=== PATIENT | male | born 1960 | race Caucasian/White ===

== ENCOUNTER 2020-09-10 23:24 | Emergency (ER) | payer OTHER ==
[~2020-09-10] VITALS: Ht 228.6 cm; Wt 83.9 kg
--- NOTE | ~2020-09-10 | HC ---
[facility] [place] [address] CONSULTATION Name: GINA ORTEZ Room #: DEP [facility]..#: [id number] Admission: 09/10/20 Attend Phys: Discharge: 09/11/20 Date of : 64 Report #: [id number] THIS REPORT FOR: cc: Clinton Funez MD, Charles MD Kerstein,Good Bello DO ~ DATE OF SERVICE: 09/11/2020 EMERGENCY ROOM CONSULTATION DATE OF PSYCHIATRIC CONSULTATION: 09/11/2020 EMERGENCY ROOM PHYSICIAN: Pranay Kinsey MD. CONSULTING PSYCHIATRIST: Good Clarke DO. REASON FOR CONSULTATION: Reported suicidal ideation, depression, alcohol use disorder. HISTORY OF PRESENT ILLNESS: This is a 60-year-old male who tends to present to ER with chest pains by his own admission and he indeed presented with chest pain to [facility] ER. He reported it has been there for the last few days, gradually worse in severity, stated extensive description of the pain to the ER doctor. He does admit to drinking alcohol 2 days ago. He also admitted that he has had similar chest pain in the past. He was seen at [facility] earlier this year for chest pain workup. He reports being in a psychiatric treatment program there. It sounds like it may have been their PHP. He also reported to the ER doctor increasing suicidal ideation. States he is not sure what brought this on, but there have not been any triggering events. He was seen by psychiatrist several years ago for 18 months. He stated me it was 5-6 years ago, it did not feel like they made progress. He stated to me it was a Dr. Pablo ____ sounds like a psychologist, not a psychiatrist. He admits he has medication recently prescribed for him in another ER visit, which he has not picked up. He is not engaged with [facility]. The patient reports that he has lived in [place] the last 9 months. Previous to that, he was in the state of [place]. He reports 1 month ago, he jumped into traffic and then decided he did not want to kill himself and jumped out. This was reported to be something that he is glad he did not follow through with. He also was recently discharged from [facility], I believe, that is where the medication was prescribed he has not picked up. It also looks like he refused to be seen for the chest pain initially ____ he complained of suicidal ideation. ALLERGIES: No known allergies. [facility] [address] [place] [address] CONSULTATION Name: GINA ORTEZ [id number] Admission: 09/10/20 Attend Phys: Discharge: 09/11/20 Date of : 64 Report #: [id number] HOME MEDICATIONS: At this point, naltrexone 50 mg daily and sertraline 50 mg daily. It sounds like that is what he has not picked up. REVIEW OF SYSTEMS: From the ER: CONSTITUTIONAL: Denies fever, chills, malaise, unexplained weight change. EYES: Denies eye pain, visual change or discharge. HENT: Denies hearing changes, ear drainage, ear infections, ear pain, neck pain or neck stiffness. RESPIRATORY: Denies cough, shortness of breath, hemoptysis or respiratory distress. CARDIOVASCULAR: As above the vague chest pain. GASTROINTESTINAL: Possibly, the source of the pain as well from his drinking. GENITOURINARY: Denies burning, frequency or dysuria. MUSCULOSKELETAL: Denies back pain, joint pain, muscle weakness or myalgias. SKIN: Denies rash. NEUROLOGIC: Denies weakness, headache, loss of consciousness. Intermittent suicidal ideation, not presently. Otherwise, 10-point review of systems negative. Weight 83.92 kg, BMI 16.1. He looks heavier, so thinking the weight may not be 100% accurate. LABORATORY DATA: Done last night, H and H 12.5 and 38.8, white count 7.4, platelets 210. Chemistry: Sodium 143, potassium 4.2, chloride 102, bicarbonate 27, anion gap 14, BUN 8, creatinine 1.0, estimated GFR 77, glucose 85, calcium 8.7, total bilirubin 0.3, direct bilirubin 0.1, AST 15, ALT 18, alkaline phosphatase 63. Troponin less than 0.06. Total protein 7.1, albumin 4.2. COVID-19 PCR serology was negative. A chest x-ray done, which showed heart size mildly prominent. No evidence of pneumonia, pneumothorax. Also did an EKG, which showed a ventricular rate of 63, WA interval 63 milliseconds, QT ____ milliseconds, QTc is 472 milliseconds and sinus rhythm. Troponin less than 0.06, alkaline phosphatase 63, AST 15, ALT 18, total protein 7.1, albumin 4.2, estimated GFR 77. Interestingly, when I asked him ____ he was in the ER. He says now he "just got there." He wants to ____ this was in relation to having his sons pick him up to get him back to his home appropriately. PHYSICAL EXAMINATION: VITAL SIGNS: This morning, temperature 36.1, pulse 84, respirations 20, BP 138/76, O2 sat 95%. GENERAL: Lying elevated in ER gurney, but unkempt. [facility] [address] [place] [address] CONSULTATION Name: GINA ORTEZ Room #: DEP Dave#: [id number] Admission: 09/10/20 Attend Phys: Discharge: 09/11/20 Date of : 64 Report #: [id number] MENTAL STATUS EXAMINATION: This is a well-developed male, appearing stated age. Attention intact. Concentration intact. Speech is normal, rate, rhythm, tone and oriented x 4. Thought process: Linear and goal oriented. Thought content focused on nothing specific ____ he did tell me he sold his car and he states yesterday he was in the [place] area, but was vague as to why or how. Denied suicidal intent and homicidal intent. Denies hopelessness, some helplessness. Denied auditory, visual, or tactile hallucinations. Memory not formally tested. Insight limited. Judgment fair to limited at times. Fund of knowledge average. FORMULATION: A 60-year-old male with ER presentation for reactive suicidal ideation when he was not happy with his chest pain workup. DIAGNOSES: At this time, adjustment disorder with disturbance of emotions ____ suicidal ideas, resolved; substance use disorder for alcohol, suspect at least moderate degree. PLAN: At this time, the patient does not meet criteria for inpatient Psychiatry including Geriatric Psychiatry Unit. Recommend him discharged to community resources including assistance from his sons. He is concerned that he has burned his bridges there. The patient also was advised if he is living in [place], his Medicaid should be changed from [place] to [place]. Time spent with this patient was in the 15-minute range and interview roughly 30 minutes on the case. I discussed my findings with Dr. Kinsey and nurse ____. Please page me if further assistance is needed. Also, the only thing he got in the ER was Tylenol. By: [id number] Good Clarke, DO /nt
[2020-09-11] MEDS ORDERED: SERTRALINE HCL100 MG PO (00:10)
[2020-09-11] MEDS ORDERED: REVIA 50 MG TAB50 M1 PO (00:10)
[2020-09-11 02:49] LABS: ABSOLUTE NEUTROPHILS 3.7 thou/uL (1.4-8.2); BASOPHILS 0.7 % (0.0-2.0); EOSINOPHILS 3.9 % (0.0-3.0); HEMATOCRIT 38.8 % (42.0-52.0); HEMOGLOBIN 12.5 gm/dL (14.0-18.0); LYMPHOCYTES 35.7 % (24.0-44.0); MCH 29.8 pg (26.0-34.0); MCHC 32.2 g/dL (28.0-37.0); MCV 92.5 fL (80.0-100.0); MONOCYTES 9.4 % (1.0-8.0); PLATELET COUNT 210 thou/uL (150-400); POLYS 50.3 % (36.0-66.0); RDW 20.1 % (10.5-14.5); WBC 7.4 thou/uL (4.0-11.0)
[2020-09-11 02:56] LABS: ANION GAP 14 mmol/L (7-16); BUN 8 mg/dL (7-18); CALCIUM 8.7 mg/dL (8.5-10.1); CHLORIDE 102 mmol/L (98-107); CO2 27 mmol/L (21-32); GLUCOSE 85 mg/dL (74-106); SODIUM 143 mmol/L (136-145)
[2020-09-11 03:05] LABS: ALBUMIN 4.2 g/dL (3.4-5.0); DIRECT BILIRUBIN 0.1 mg/dL (<0.1-0.2); SGOT 15 U/L (15-37); SGPT 18 U/L (30-65); TOTAL BILIRUBIN 0.3 mg/dL (0.2-1.0); TOTAL PROTEIN 7.1 g/dL (6.4-8.2); TROPONIN-I <0.06 ng/mL (<0.06)
--- NOTE | 2020-09-11 07:10 | EKG ---
[facility] [place] [address] ELECTROCARDIOGRAM REPORT Name: GINA ORTEZ Room #: REG [facility].#: [id number] Admission: 09/10/20 Attend Phys: Discharge: Date of : 64 Report #: [id number] THIS REPORT FOR: cc: Clinton Funez MD, Charles MD Santiago,Reinaldo VAZ [facility] ~ THIS REPORT FOR: //name// [facility] ED Test Date: 2020-09-11 Test Time: 01:20:32 Pat Name: GINA ORTEZ Department: Room: Gender: Cleaning Supervisor: [facility] : 1960 Requested By: Jessie Corral Order Number: [id number] MD: Reinaldo Burgess Measurements Intervals [place] Rate: 63 P: 65 [place]: 63 QRS: 73 QRSD: 110 T: 18 QT: 461 QTc: 472 Interpretive Statements Sinus rhythm Short OH interval Right atrial enlargement MinimalJ point elevation, anterior leads No previous ECG available for comparison Electronically Signed On 09-11-2020 7:10:12 QA TEST ANALYST by Reinaldo Burgess [email or web address] <ELECTRONICALLY SIGNED> By: Reinaldo Burgess MD, FACC [id number] Reinaldo Burgess MD, [facility] /EPI
[2020-09-11] MEDS ORDERED: NAPROSYN500 MG PO (09:01)
[2020-09-11 09:30] VITALS: BP 135/78
== END 2020-09-11 09:32 | disposition home or self-care (01) ==
LOC: ER 23:24
PROVIDERS: Emergency Medicine
DX: F32.9 Major depressive disorder, single episode, unspecified (principal); F10.10 Alcohol abuse, uncomplicated; F43.29 Adjustment disorder with other symptoms; R45.851 Suicidal ideations; R06.00 Dyspnea, unspecified; I10 Essential (primary) hypertension; Z72.89 Other problems related to lifestyle; Z20.828 Contact with and (suspected) exposure to other viral communicable diseases; Z79.899 Other long term (current) drug therapy

== ENCOUNTER → 2020-09-10 | Emergency (ER) | payer OTHER ==
[~2020-09-10] MED LIST: NAPROSYN500 MG PO; REVIA 50 MG TAB50 M1 PO; SERTRALINE HCL100 MG PO
== END ==
LOC: ER 21:35
DX: R07.89 Other chest pain (principal); Z53.21 Procedure and treatment not carried out due to patient leaving prior to being seen by health care provider

== ENCOUNTER 2020-09-13 16:23 | Emergency (ER) | payer OTHER ==
[~2020-09-13] VITALS: Ht 185.4 cm; Wt 83.9 kg
[2020-09-13 23:57] VITALS: BP 115/62
== END 2020-09-13 23:58 | disposition home or self-care (01) ==
LOC: ER 16:23
DX: F10.129 Alcohol abuse with intoxication, unspecified (principal); G62.9 Polyneuropathy, unspecified; Z79.899 Other long term (current) drug therapy

== ENCOUNTER 2020-10-25 20:55 | Emergency (ER) | payer OTHER ==
[~2020-10-25] VITALS: Ht 180.3 cm; Wt 108.9 kg
[2020-10-25 22:44] LABS: ABSOLUTE NEUTROPHILS 3.4 thou/uL (1.4-8.2); BASOPHILS 0.3 % (0.0-2.0); EOSINOPHILS 3.9 % (0.0-3.0); HEMATOCRIT 36.5 % (42.0-52.0); HEMOGLOBIN 12.1 gm/dL (14.0-18.0); LYMPHOCYTES 31.4 % (24.0-44.0); MCH 30.8 pg (26.0-34.0); MCHC 33.1 g/dL (28.0-37.0); MCV 93.2 fL (80.0-100.0); PLATELET COUNT 218 thou/uL (150-400); POLYS 51.4 % (36.0-66.0); RBC 3.92 mil/uL (4.50-6.00); RDW 19.1 % (10.5-14.5); WBC 6.6 thou/uL (4.0-11.0)
[2020-10-25 22:49] LABS: CALCIUM 8.6 mg/dL (8.5-10.1); POTASSIUM 3.6 mmol/L (3.5-5.1)
[2020-10-25 22:55] LABS: TOTAL BILIRUBIN 0.2 mg/dL (0.2-1.0); TOTAL PROTEIN 7.3 g/dL (6.4-8.2)
[2020-10-25 23:09] LABS: AMP/METHAMP Negative (Negative); BARBITURATES Negative (Negative); BENZODIAZEPINES POSITIVE (Negative); COCAINE Negative (Negative); METHADONE Negative (Negative); OPIATES Negative (Negative); PCP Negative (Negative)
[2020-10-26 07:06] VITALS: BP 111/65
== END 2020-10-26 07:55 | disposition home or self-care (01) ==
LOC: ER 20:55
PROVIDERS: Emergency Medicine
DX: F10.129 Alcohol abuse with intoxication, unspecified (principal); G62.9 Polyneuropathy, unspecified; Z79.899 Other long term (current) drug therapy; Y90.9 Presence of alcohol in blood, level not specified

== ENCOUNTER 2020-12-05 20:40 | Emergency (ER) | payer OTHER ==
[~2020-12-05] VITALS: Ht 182.9 cm; Wt 81.7 kg
[2020-12-05 20:54] LABS: ABSOLUTE NEUTROPHILS 5.1 thou/uL (1.4-8.2); BASOPHILS 0.8 % (0.0-2.0); EOSINOPHILS 2.2 % (0.0-3.0); HEMOGLOBIN 11.5 gm/dL (14.0-18.0); LYMPHOCYTES 19.3 % (24.0-44.0); MCH 29.5 pg (26.0-34.0); MCHC 32.8 g/dL (28.0-37.0); MCV 89.8 fL (80.0-100.0); MONOCYTES 8.5 % (1.0-8.0); PLATELET COUNT 237 thou/uL (150-400); POLYS 69.2 % (36.0-66.0); RBC 3.89 mil/uL (4.50-6.00); RDW 17.5 % (10.5-14.5); WBC 7.4 thou/uL (4.0-11.0)
[2020-12-05 21:45] LABS: ANION GAP 9 mmol/L (7-16); BUN 9 mg/dL (7-18); CALCIUM 8.1 mg/dL (8.5-10.1); CHLORIDE 92 mmol/L (98-107); CO2 27 mmol/L (21-32); CREATININE 1.1 mg/dL (0.7-1.3); GLUCOSE 97 mg/dL (74-106); POTASSIUM 3.7 mmol/L (3.5-5.1); SODIUM 128 mmol/L (136-145)
[2020-12-05 21:55] LABS: SGOT 38 U/L (15-37); SGPT 27 U/L (30-65); TOTAL BILIRUBIN 1.1 mg/dL (0.2-1.0); TROPONIN-I <0.06 ng/mL (<0.06)
[2020-12-05 22:04] LABS: SALICYLATE < 2.8 mg/dL (2.8-20.0)
[2020-12-05 22:53] LABS: AMP/METHAMP Negative (Negative); BARBITURATES Negative (Negative); BENZODIAZEPINES Negative (Negative); COCAINE Negative (Negative); METHADONE Negative (Negative); OPIATES Negative (Negative); PCP Negative (Negative)
--- NOTE | 2020-12-06 07:13 | EKG ---
[place] [address] [facility] [place] [address] ELECTROCARDIOGRAM REPORT Name: GINA ORTEZ [id number] Admission: 12/05/20 Attend Phys: Discharge: Date of : 64 Report #: [id number] [facility] ED Test Date: 2020-12-05 Test Time: 21:25:18 Pat Name: GINA ORTEZ Department: Room: Gender: M Extrusion Supervisor: wilbur : 1960 Requested By: Arielle Gil Order Number: [id number] MD: Reinaldo Burgess Measurements Intervals [place] Rate: 64 P: 68 [place]: 173 QRS: 85 QRSD: 95 T: 52 QT: 457 QTc: 472 Interpretive Statements Sinus rhythm Borderline ST elevation, lateral leads Baseline wander in lead(s) V2 Compared to ECG 09/11/2020 01:20:32 ST (T wave) deviation now present Short NC interval no longer present Atrial abnormality no longer present Electronically Signed On 12-06-2020 7:13:35 STENCIL CUTTER MACHINE by Reinaldo Burgess [email or web address] <ELECTRONICALLY SIGNED> By: Reinaldo Burgess MD, [facility] 12/06/20 0713 24 24 Reinaldo Burgess MD, [facility] /EPI
--- NOTE | 2020-12-06 07:44 | EKG ---
[place] [address] [facility] [place] [address] ELECTROCARDIOGRAM REPORT Name: GINA ORTEZ [facility]: [facility] [id number] Admission: 12/05/20 Attend Phys: Discharge: Date of : 64 Report #: [id number] [facility] ED Test Date: 2020-12-05 Test Time: 20:46:24 Pat Name: GINA ORTEZ Department: Room: Gender: M Centrifugal Supervisor: wilbur : 1960 Requested By: Arielle Gil Order Number: [id number] MD: Niranjan Spaulding Measurements Intervals [place] Rate: 66 P: 81 [place]: 177 QRS: 86 QRSD: 99 T: 54 QT: 458 QTc: 480 Interpretive Statements Sinus rhythm Borderline prolonged QT interval Baseline wander in lead(s) V2 Compared to ECG 09/11/2020 01:20:32 No significant change was found Electronically Signed On 12-06-2020 7:43:48 MEDICAL CHEMIST by Niranjan Spaulding [email or web address] <ELECTRONICALLY SIGNED> By: Niranjan Spaulding MD, [facility] 12/06/20 0743 45 45 Niranjan Spaulding MD, FACC /EPI
[2020-12-06 09:50] VITALS: BP 135/89
== END 2020-12-06 09:50 | disposition home or self-care (01) ==
LOC: ER 20:40
PROVIDERS: Physician Assistant
DX: R07.89 Other chest pain (principal); F10.129 Alcohol abuse with intoxication, unspecified; Z79.899 Other long term (current) drug therapy; Z20.822 Contact with and (suspected) exposure to COVID-19; Y90.7 Blood alcohol level of 200-239 mg/100 ml

== ENCOUNTER 2021-03-01 16:30 | Emergency (ER) | payer OTHER ==
[~2021-03-01] VITALS: Ht 182.9 cm; Wt 81.7 kg
--- NOTE | ~2021-03-01 | EMS ---
[facility] [address] [place] [address] EMS Patient Care Report Name: GINA ORTEZ Room #: REG MONICA Acosta#: [id number] Admission: 03/01/21 Attend Phys: Discharge: Date of : 64 Report #: [id number] THIS REPORT FOR: //name// Report Transmitted: 03/01/2021 19:40 EMS Care Summary [facility] MED-ACT Incident [id number] @ 03/01/2021 16:00 Incident Location [address] [place] [address] Patient GINA ORTEZ Male, 60 Years 1960 Patient Address [address] [place] [address] Patient History Hypertension (HTN),Depression,Anxiety,Neuropathy,Alcohol Abuse,Tonsillectomy, Patient Allergies No known allergies, Patient Medications Lisinopril, Chief Complaint Pt is having emotional distress Disposition Transported No Lights/[place] Dispatch Reason Traumatic Injury Transported To [facility] Narrative [id number] responded to above business location for a C2 injury. On scene, the crew finds an alert although possibly intoxicated on ETOH 60/M seated on a bench in front of a business. PD reports the employees at the business called for them when he fell into the doorway and sustained a small laceration to his L side [facility] [address] [place] [address] EMS Patient Care Report Name: GINA ORTEZ Room #: REG Dave#: [id number] Admission: 03/01/21 Attend Phys: Discharge: Date of : 64 Report #: [id number] face and L side ear. Pt's chief complaint is that he would like to detox from alcohol. "I drink like a pig", he responded when asked how much alcohol he had consumed today. Pt denied any medical complaint although stated he was under considerable emotional distress due to an ongoing disagreement with his ex-. Pt admits to being an alcoholic and would like to detox. ABCs, PE, VS from [facility] already on scene with pt. Pt has a superficial approx 2" laceration on his L cheek and denies any pain in his body. Pt assisted to cot and secured with belts. Pt moved via cot to [facility] and secured on board. Pt rests en route to [facility] and remains A&Ox3 although is lethargic and slurring his words possibly due to ETOH intoxication. On arrival at [facility], pt moved to ER and scoots himself over to ER bed. Report delivered to staff. 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 It is designed to provide pertinent information for the following purposes: continuity of care, clinical quality, and state data reporting. The complete legal record is available to ED staff and administrators of the receiving hospital in [employer] Patient Tracker. All data is provided "as is."
[2021-03-01] MEDS ORDERED: LISINOPRIL10 MG PO (16:39)
[2021-03-01 16:57] LABS: ABSOLUTE NEUTROPHILS 3.4 thou/uL (1.4-8.2); BASOPHILS 0.6 % (0.0-2.0); EOSINOPHILS 1.2 % (0.0-3.0); HEMATOCRIT 36.1 % (42.0-52.0); HEMOGLOBIN 12.2 gm/dL (14.0-18.0); LYMPHOCYTES 28.1 % (24.0-44.0); MCH 32.2 pg (26.0-34.0); MCHC 33.8 g/dL (28.0-37.0); MCV 95.3 fL (80.0-100.0); MONOCYTES 11.9 % (1.0-8.0); PLATELET COUNT 184 thou/uL (150-400); POLYS 58.2 % (36.0-66.0); RBC 3.79 mil/uL (4.50-6.00); RDW 21.6 % (10.5-14.5); WBC 5.8 thou/uL (4.0-11.0)
[2021-03-01 17:09] LABS: ANION GAP 15 mmol/L (7-16); BUN 9 mg/dL (7-18); CALCIUM 8.4 mg/dL (8.5-10.1); CHLORIDE 103 mmol/L (98-107); CO2 24 mmol/L (21-32); CREATININE 0.9 mg/dL (0.7-1.3); GLUCOSE 99 mg/dL (74-106); POTASSIUM 3.7 mmol/L (3.5-5.1); SODIUM 142 mmol/L (136-145)
[2021-03-01 17:15] LABS: ALBUMIN 3.8 g/dL (3.4-5.0); SALICYLATE < 2.8 mg/dL (2.8-20.0); SGOT 64 U/L (15-37); SGPT 46 U/L (16-63); TOTAL BILIRUBIN 0.5 mg/dL (0.2-1.0)
[2021-03-01 18:08] LABS: ANISOCYTOSIS 2+; OVALOCYTES FEW
[2021-03-02 06:16] VITALS: BP 128/74
== END 2021-03-02 06:24 | disposition home or self-care (01) ==
LOC: ER 16:30
PROVIDERS: Physician Assistant
DX: F10.129 Alcohol abuse with intoxication, unspecified (principal); Y90.8 Blood alcohol level of 240 mg/100 ml or more

== ENCOUNTER 2021-05-06 16:09 | Emergency (ER) | payer OTHER ==
[~2021-05-06] VITALS: Ht 182.9 cm; Wt 81.7 kg
--- NOTE | ~2021-05-06 | EMS ---
[facility] [address] [place] [address] EMS Patient Care Report Name: GINA ORTEZ Room #: DEP MONICA Acosta#: [id number] Admission: 05/06/21 Attend Phys: Discharge: 05/06/21 Date of : 64 Report #: [id number] THIS REPORT FOR: //name// Report Transmitted: 05/07/2021 05:57 EMS Care Summary [facility] MED-ACT Incident [id number] @ 05/06/2021 15:34 Incident Location [address] [place] [address] Patient GINA ORTEZ Male, 60 Years 1960 Patient Address [address] [place] [address] Patient History Hypertension (HTN),Depression,Anxiety,Neuropathy,Alcohol Abuse,Tonsillectomy, Patient Allergies No known allergies, Patient Medications Lisinopril, Chief Complaint I am in a drunk stupor Disposition Transported No Lights/[place] Dispatch Reason Unknown Problem/Person Down Transported To [facility] Narrative Arrived on scene to find a 60 y/o male who presented in a seated position, outside of a business establishment, asleep, with his back leaning against a metal door. Outside ambient temperature was in the 100's with a high heat index. This call came out as a unconscious agonal, but upon approaching the pt [facility] [address] [place] [address] EMS Patient Care Report Name: GINA ORTEZ Room #: DEP [facility]#: [id number] Admission: 05/06/21 Attend Phys: Discharge: 05/06/21 Date of : 64 Report #: [id number] and asking him if he was ok, he responded by saying that he was just in a "drunken stupor" and that he was "fine". Pt reports that he fell asleep outside, in a shaded area in order to escape the heat. The pt reports that he has been drinking ETOH for the past 3 days straight. Pt denied any other drugs taken besides ETOH. Pt reports that he would like to be transported to [facility] ED for eval and to request rehab. Pt denied any injuries, or any medical complaints and was transported to ED as requested. Initial Vitals @15:52P: 97,BP: 133/88,SpO2: 95, @16:02P: 116,R: 14,BP: 125/76,Pain: 0/10,GCS: 15,SpO2: 95,Revised Trauma: 12, @15:42P: 105,R: 14,BP: 142/101,Pain: 0/10,GCS: 15,Temp: 98.6F,Glucose: 87,SpO2: 95,Revised Trauma: 12, Assessments @15:39MENTAL:No Abnormalities,SKIN:HEENT:Head/Face: No Abnormalities,LUNG SOUNDS:General: No Abnormalities,ABDOMEN:General: No Abnormalities,PELVIS//GI:No Abnormalities,EXTREMITIES:PULSE:NEURO: Impression Alcohol use Timeline :32,Call Received 15:32,Psap Call 15:34,Dispatched 15:35,En Route 15:38,On Scene 15:38,At Patient 15:42,BP: 142/101 M,PULSE: 105,RR: 14 R,SPO2: 95 Ox,ETCO2: ,B,PAIN: 0,GCS: 15, 15:46,Depart Scene 15:52,BP: 133/88 M,PULSE: 97,RR: R,SPO2: 95 Ox,ETCO2: ,BG: ,PAIN: ,GCS: , 16:02,At Destination 16:02,BP: 125/76 M,PULSE: 116,RR: 14 R,SPO2: 95 Ox,ETCO2: ,BG: ,PAIN: 0,GCS: 15, 16:20,Call Closed Disclaimer v1.1 Copyright 2020 [employer] This EMS Care Summary contains data elements from the applicable legal record (which may be displayed differently). It is designed to provide pertinent information for the following purposes: continuity of care, clinical quality, and state data reporting. The complete legal record is available to ED staff and administrators of the receiving hospital in [employer] Patient Tracker. All data [address] [address] EMS Patient Care Report Name: GINA ORTEZ Room #: DEP MONICA Acosta#: [id number] Admission: 05/06/21 Attend Phys: Discharge: 05/06/21 Date of : 64 Report #: [id number] is provided "as is."
[~2021-05-06 16:09] MED LIST changes: +LISINOPRIL10 MG PO
[2021-05-06 19:23] VITALS: BP 105/63
== END 2021-05-06 19:23 | disposition home or self-care (01) ==
LOC: ER 16:09
DX: S00.83XA Contusion of other part of head, initial encounter (principal); F10.129 Alcohol abuse with intoxication, unspecified; F41.9 Anxiety disorder, unspecified; Z79.899 Other long term (current) drug therapy; W20.8XXA Other cause of strike by thrown, projected or falling object, initial encounter; Y93.89 Activity, other specified; Y92.89 Other specified places as the place of occurrence of the external cause; Y99.8 Other external cause status

== ENCOUNTER 2021-06-24 16:54 | Emergency (ER) | payer OTHER ==
[~2021-06-24] VITALS: Ht 180.3 cm; Wt 81.7 kg
--- NOTE | ~2021-06-24 | EMS ---
[address] [address] EMS Patient Care Report Name: GINA ORTEZ Room #: DEP MONICA Acosta#: [id number] Admission: 06/24/21 Attend Phys: Discharge: 06/24/21 Date of : 64 Report #: [id number] THIS REPORT FOR: //name// Report Transmitted: 06/26/2021 14:51 EMS Care Summary [place], [place] Incident [id number] @ 06/24/2021 16:27 Incident Location [address] [place] [address] Patient GINA ORTEZ Male, 61 Years 1960 Patient Address [address] [place] [address] Patient History Hypertension (HTN),Gastro-Esophageal Reflux Disease (GERD),Alcohol Abuse,Chronic Pain, Patient Allergies No known allergies, Patient Medications Aspirin, Gabapentin, Lisinopril, Chief Complaint "I'M DRUNK AND STUPID" Disposition Transported No Lights/[place] Dispatch Reason Falls Transported To [facility] Narrative THE PATIENT WAS FOUND SITTING ON THE FLOOR OF THE [facility]ORE IN THE PHARMACY AREA. STAFF ON SCENE STATE THEY WERE WATCHING THE PATIENT ON [place] AND HE SLID OFF A COUCH ONTO THE FLOOR, CRAWLED OVER BY THE PHARMACY AND TRIED TO PULL [address] [address] EMS Patient Care Report Name: GINA ORTEZ Room #: DEP [facility]#: [id number] Admission: 06/24/21 Attend Phys: Discharge: 06/24/21 Date of : 64 Report #: [id number] HIMSELF UP TO STANDING USING A DISPLAY WHICH FELL OVER. THE PATIENT IS ALERT BUT CONFUSED AND SLOW TO ANSWER QUESTIONS. WHEN THE PATIENT WAS ASKED WHY EMS WAS CALLED FOR HIM HE RESPONDED WITH "I'M DRUNK AND STUPID." THE PATIENT STATES HE HAS BEEN DRINKING BEER BUT WILL NOT SAY HOW MUCH. NO OBVIOUS INJURIES OR ABNORMALITIES WERE NOTED ON EXAM. THE PATIENT WAS MOVED TO A WHEELCHAIR IN THE ER TRIAGE AREA AT THE [facility] ER AND CARE WAS TRANSFERRED TO THE ER STAFF. Initial Vitals @16:36P: 97,R: 18,BP: 134/89,Pain: 0/10,GCS: 14,Glucose: 121,Revised Trauma: 12, @16:40P: 94,R: 16,BP: 116/82,Pain: 0/10,GCS: 15,CO: 1,SpO2: 95,Revised Trauma: 12, Assessments @16:36MENTAL:Person Oriented,Confused,SKIN:No Abnormalities,HEENT:Head/Face: No Abnormalities,Eyes: No Abnormalities,Neck/Airway: No Abnormalities,LUNG SOUNDS:General: No Abnormalities,Left Upper: No Abnormalities,Right Upper: No Abnormalities,Left Lower: No Abnormalities,Right Lower: No Abnormalities,ABDOMEN:General: No Abnormalities,Left Upper: No Abnormalities,Right Upper: No Abnormalities,Left Lower: No Abnormalities,Right Lower: No Abnormalities,PELVIS//GI:No Abnormalities,EXTREMITIES:Left Arm: No Abnormalities,Right Arm: No Abnormalities,Left Leg: No Abnormalities,Right Leg: No Abnormalities,PULSE:Radial: 2+ Normal,NEURO:No Abnormalities, Impression Confusion/Delirium Procedures @16:36ALS AssessmentResponse: Unchanged Timeline 16:27,Call Received 16:27,Dispatch Notified 16:27,Dispatched 16:28,En Route 16:35,On Scene 16:36,At Patient 16:36,ALS Assessment,Response: Unchanged 16:36,BP: 134/89 M,PULSE: 97,RR: 18 R,SPO2: Ox,ETCO2: ,B,PAIN: 0,GCS: 14, 16:40,BP: 116/82 M,PULSE: 94,RR: 16 R,SPO2: 95 Ox,ETCO2: ,BG: ,PAIN: 0,GCS: 15, 16:43,Depart Scene 16:50,At Destination 17:23,Call Closed Disclaimer [address] [address] EMS Patient Care Report Name: GINA ORTEZ Room #: DEP [facility]#: [id number] Admission: 06/24/21 Attend Phys: Discharge: 06/24/21 Date of : 64 Report #: [id number] v1.1 Copyright 2020 [employer] This EMS Care Summary contains data elements from the applicable legal record (which may be displayed differently). It is designed to provide pertinent information for the following purposes: continuity of care, clinical quality, and state data reporting. The complete legal record is available to ED staff and administrators of the receiving hospital in [facility]'s Patient Tracker. All data is provided "as is."
[2021-06-24 21:27] VITALS: BP 120/71
== END 2021-06-24 21:11 | disposition home or self-care (01) ==
LOC: ER 16:54
DX: F10.129 Alcohol abuse with intoxication, unspecified (principal); G62.9 Polyneuropathy, unspecified; F41.9 Anxiety disorder, unspecified; Z79.899 Other long term (current) drug therapy; Y90.9 Presence of alcohol in blood, level not specified

== ENCOUNTER 2021-07-09 15:43 | Emergency (ER) | payer OTHER ==
[~2021-07-09] VITALS: Ht 182.9 cm; Wt 81.7 kg
--- NOTE | ~2021-07-09 | EMS ---
[address] [address] EMS Patient Care Report Name: GINA ORTEZ Room #: PRE M.R.#: [id number] Admission: Attend Phys: Discharge: Date of : 64 Report #: [id number] THIS REPORT FOR: //name// Report Transmitted: 07/09/2021 15:40 EMS Care Summary [facility] MED-ACT Incident [id number] @ 07/09/2021 15:16 Incident Location [address] [place] [address] Patient GINA ORTEZ Male, 61 Years 1960 Patient Address [address] [place] [address] Patient History Hypertension (HTN),Depression,Anxiety,Neuropathy,Alcohol Abuse,Tremors, Patient Allergies No known allergies, Patient Medications Lisinopril, Metoprolol, Chief Complaint "chest pain started two days ago" Disposition Transported No Lights/[place] Dispatch Reason Chest Pain (Non-Traumatic) Transported To [facility] Narrative Medic 1144 dispatched to [facility] for a 61 y/o M c/o chest pain. On arrival, pt found sitting upright on bench inside [facility] and in no apparent distress. Pt advises he has been having chest pain for two days but that today it feels [address] [address] EMS Patient Care Report Name: GINA ORTEZ Room #: PRE MONICA Acosta#: [id number] Admission: Attend Phys: Discharge: Date of : 64 Report #: [id number] different than normal. Pt also advises he has neuropathy in his hands and feet but has numbness in his hands and feet that started today but has happened before. Pt slid himself onto cot from bench, covered with a sheet, secured with seatbelts, then brought to ambulance. Vitals, 3 lead, and 12 lead obtained and unremarkable. Administered 324 mg of Aspirin to pt due to chest pain that he rates at a 7/10 and describes as "pressure." Pt denies any head/neck/back pain, shortness of breath, nausea/vomiting, and/or loss of consciousness. Radio report called en route. Pt monitored throughout transport with no change in condition. Pt transferred from cot to ED bed via sliding himself over. Report given to RN x 1 @ bedside. Initial Vitals @15:38P: 60,R: 18,BP: 114/77,Pain: 7/10,SpO2: 99, @15:27P: 65,R: 18,Pain: 7/10,GCS: 15,SpO2: 98, @15:26P: 70,R: 18,BP: 137/66,Pain: 7/10,GCS: 15,Temp: 98.2F,SpO2: 97,Revised Trauma: 12, Impression Chest Pain / Discomfort Procedures @15:33Surgical Mask on PatientResponse: Unchanged@15:2712-Lead ECGResponse: UnchangedSucceeded@15:33Aspirin - 324 Milligrams (mg) - OralResponse: Unchanged Timeline 15:14,Call Received 15:14,Psap Call 15:16,Dispatched 15:16,En Route 15:20,On Scene 15:22,At Patient 15:26,BP: 137/66 M,PULSE: 70,RR: 18 R,SPO2: 97 Ox,ETCO2: ,BG: ,PAIN: 7,GCS: 15, 15:27,12-Lead ECG,Response: UnchangedSucceeded, 15:27,BP: / M,PULSE: 65,RR: 18 R,SPO2: 98 Ox,ETCO2: ,BG: ,PAIN: 7,GCS: 15, 15:28,Depart Scene 15:33,Surgical Mask on Patient,Response: Unchanged 15:33,Aspirin - 324 Milligrams (mg) - Oral,Response: Unchanged 15:38,At Destination 15:38,BP: 114/77 M,PULSE: 60,RR: 18 R,SPO2: 99 Ox,ETCO2: ,BG: ,PAIN: 7,GCS: , 15:53,Call Closed Disclaimer v1.1 Copyright 2020 [employer] This EMS Care Summary contains data elements from the applicable legal record (which may be displayed differently). It is designed to provide pertinent [address] [address] EMS Patient Care Report Name: GINA ORTEZ Room #: PRE M.R.#: [id number] Admission: Attend Phys: Discharge: Date of : 64 Report #: [id number] information for the following purposes: continuity of care, clinical quality, and state data reporting. The complete legal record is available to ED staff and administrators of the receiving hospital in [facility]'s Patient Tracker. All data is provided "as is."
--- NOTE | ~2021-07-09 | EKG ---
[address] [address] ELECTROCARDIOGRAM REPORT Name: GINA ORTEZ Room #: [facility] M.R.#: [id number] Admission: Attend Phys: Discharge: Date of : 64 Report #: [id number] [facility] ED Test Date: 2021-07-09 Test Time: 15:48:16 Pat Name: GINA ORTEZ Department: Room: Gender: M Triage Assistant: MARY : 1960 Requested By: Mendy Sanders Order Number: [id number] MD: Measurements Intervals [place] Rate: 60 P: 46 [place]: 153 QRS: 63 QRSD: 98 T: 19 QT: 450 QTc: 450 Interpretive Statements Sinus rhythm Atrial premature complex Baseline wander in lead(s) V2 No previous ECG available for comparison [email or web address] By: 1548 1548 Epiphany MD Robert /EPI
[2021-07-09 16:16] LABS: CALCIUM 8.6 mg/dL (8.5-10.1); HEMATOCRIT 38.4 % (42.0-52.0); MCH 33.2 pg (26.0-34.0); MCHC 33.9 g/dL (28.0-37.0); PLATELET COUNT 161 thou/uL (150-400); POTASSIUM 4.1 mmol/L (3.5-5.1); RBC 3.92 mil/uL (4.50-6.00); RDW 16.5 % (10.5-14.5); WBC 6.5 thou/uL (4.0-11.0)
[2021-07-09 16:26] LABS: ALBUMIN 3.9 g/dL (3.4-5.0); TOTAL BILIRUBIN 0.4 mg/dL (0.2-1.0); TOTAL PROTEIN 7.4 g/dL (6.4-8.2)
[2021-07-09] MEDS ORDERED: VISTARIL 25 MG25 M1 PO (16:39)
[2021-07-09] MEDS ORDERED: OMEPRAZOLE40 MG PO (16:39)
[2021-07-09 16:45] VITALS: BP 135/80
[2021-07-09 16:47] LABS: ABSOLUTE NEUTROPHILS 2.5 thou/uL (1.4-8.2); NUCLEATED RBCS 2 /100WBC
[2021-07-09 16:50] LABS: ANISOCYTOSIS 1+; LARGE PLATELETS FEW
[2021-07-09 16:51] LABS: MACROCYTES SLIGHT
--- NOTE | 2021-07-10 08:17 | EKG ---
[address] [place] [address] ELECTROCARDIOGRAM REPORT Name: GINA ORTEZ Room #: DEP [facility] [id number] Admission: 07/09/21 Attend Phys: Discharge: 07/09/21 Date of : 64 Report #: [id number] [facility] ED Test Date: 2021-07-09 Test Time: 15:48:16 Pat Name: GINA ORTEZ Department: Room: Gender: M Servicing Manager: MARY : 1960 Requested By: Mendy Sanders Order Number: [id number] MD: Reinaldo Burgess Measurements Intervals [place] Rate: 60 P: 46 [place]: 153 QRS: 63 QRSD: 98 T: 19 QT: 450 QTc: 450 Interpretive Statements Sinus rhythm Atrial premature complex Baseline wander in lead(s) V2 Compared to ECG 12/05/2020 21:25:18 Atrial premature complex(es) now present ST (T wave) deviation no longer present Electronically Signed On 07-10-2021 8:17:27 CDT by Reinaldo Burgess [email or web address] <ELECTRONICALLY SIGNED> By: Reinaldo Burgess MD, [facility] 07/10/21 0817 1548 1548 Reinaldo Burgess MD, [facility] /EPI
== END 2021-07-09 16:49 | disposition home or self-care (01) ==
LOC: ER 15:43
PROVIDERS: Physician Assistant
DX: F41.9 Anxiety disorder, unspecified (principal); R07.89 Other chest pain; Z79.899 Other long term (current) drug therapy

== ENCOUNTER 2021-07-09 17:51 | Emergency (ER) | payer OTHER ==
[~2021-07-09] VITALS: Ht 182.9 cm; Wt 81.7 kg
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
[~2021-07-09 17:51] MED LIST changes: +OMEPRAZOLE40 MG PO; +VISTARIL 25 MG25 M1 PO
[2021-07-09 22:05] VITALS: BP 122/73
== END 2021-07-09 22:06 | disposition home or self-care (01) ==
LOC: ER 17:51
DX: S70.00XA Contusion of unspecified hip, initial encounter (principal); S09.90XA Unspecified injury of head, initial encounter; W19.XXXA Unspecified fall, initial encounter; Y93.89 Activity, other specified; Y92.89 Other specified places as the place of occurrence of the external cause; Y99.8 Other external cause status

== ENCOUNTER 2021-08-23 08:25 | Emergency (ER) | payer OTHER ==
[~2021-08-23] VITALS: Ht 182.9 cm; Wt 81.7 kg
--- NOTE | 2021-08-23 09:29 | EKG ---
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: ELDA : 1960 Requested By: Austen Oro Order Number: [id number] MD: Reinaldo Burgess Measurements Intervals [place] Rate: 62 P: 73 [place]: 170 QRS: 46 QRSD: 101 T: 51 QT: 476 QTc: 484 Interpretive Statements Pacemaker spikes or artifacts Sinus rhythm Compared to ECG 07/09/2021 15:48:16 Atrial premature complex(es) no longer present Electronically Signed On 08-23-2021 9:29:38 [employer] by Reinaldo Burgess [email or web address] <ELECTRONICALLY SIGNED> By: Reinaldo Burgess MD, [facility] 08/23/21928 7 7 Reinaldo Burgess MD, FACC /EPI
[2021-08-23 09:58] LABS: ABSOLUTE NEUTROPHILS 3.5 thou/uL (1.4-8.2); BASOPHILS 0.5 % (0.0-2.0); EOSINOPHILS 0.2 % (0.0-3.0); HEMATOCRIT 37.2 % (42.0-52.0); HEMOGLOBIN 12.7 gm/dL (14.0-18.0); LYMPHOCYTES 16.3 % (24.0-44.0); MCH 33.4 pg (26.0-34.0); MCHC 34.2 g/dL (28.0-37.0); MCV 97.6 fL (80.0-100.0); MONOCYTES 9.2 % (1.0-8.0); PLATELET COUNT 210 thou/uL (150-400); POLYS 73.8 % (36.0-66.0); RBC 3.81 mil/uL (4.50-6.00); RDW 17.7 % (10.5-14.5); WBC 4.7 thou/uL (4.0-11.0)
[2021-08-23 10:04] LABS: CALCIUM 9.1 mg/dL (8.5-10.1); POTASSIUM 3.3 mmol/L (3.5-5.1)
[2021-08-23 10:13] LABS: ALBUMIN 4.5 g/dL (3.4-5.0); TOTAL BILIRUBIN 1.8 mg/dL (0.2-1.0); TOTAL PROTEIN 7.9 g/dL (6.4-8.2)
[2021-08-23 12:08] VITALS: BP 176/106
== END 2021-08-23 14:07 | disposition home or self-care (01) ==
LOC: ER 08:25
PROVIDERS: Emergency Medicine
DX: R07.89 Other chest pain (principal); M25.552 Pain in left hip; G62.9 Polyneuropathy, unspecified; F10.10 Alcohol abuse, uncomplicated; F41.9 Anxiety disorder, unspecified; Z79.899 Other long term (current) drug therapy; W01.0XXA Fall on same level from slipping, tripping and stumbling without subsequent striking against object, initial encounter; Y93.89 Activity, other specified; Y92.89 Other specified places as the place of occurrence of the external cause; Y99.8 Other external cause status

== ENCOUNTER 2021-09-02 16:46 | Emergency (ER) | payer OTHER ==
[~2021-09-02] VITALS: Ht 182.9 cm; Wt 81.7 kg
[2021-09-02 16:50] VITALS: BP 132/84
== END 2021-09-02 18:10 | disposition home or self-care (01) ==
LOC: ER 16:46
DX: S00.81XA Abrasion of other part of head, initial encounter (principal); F10.10 Alcohol abuse, uncomplicated; I10 Essential (primary) hypertension; G62.9 Polyneuropathy, unspecified; F41.9 Anxiety disorder, unspecified; W01.0XXA Fall on same level from slipping, tripping and stumbling without subsequent striking against object, initial encounter; Y93.89 Activity, other specified; Y92.89 Other specified places as the place of occurrence of the external cause; Y99.8 Other external cause status

== ENCOUNTER 2021-09-02 22:37 | Emergency (ER) | payer OTHER ==
[~2021-09-02] VITALS: Ht 182.9 cm; Wt 81.7 kg
--- NOTE | ~2021-09-02 | EMS ---
[place] [address] EMS Patient Care Report Name: GINA ORTEZ Room #: REG Dave#: [id number] Admission: 09/02/21 Attend Phys: Discharge: Date of : 64 Report #: [id number] THIS REPORT FOR: //name// Report Transmitted: 09/02/2021 22:15 EMS Care Summary [place], [place] Incident [id number] @ 09/02/2021 22:18 Incident Location [address] [place] [address] Patient GINA ORTEZ Male, 61 Years 1960 Patient Address homeless Patient History Hypertension (HTN),Alcohol Abuse, Patient Allergies No known allergies, Patient Medications Lisinopril, Chief Complaint chest pain Disposition Transported No Lights/[place] Dispatch Reason Chest Pain (Non-Traumatic) Transported To [facility] Narrative Arrived to find pt sitting on bar stool inside bar. Staff stated pt stumbled in and asked them to call an ambulance. Pt walks out to ambulance, sits on cot and is secured with cot straps. Pt placed in surgical mask. Pt states he has had chest pain for 12 hours. Pt states he was seen a day ago for the same thing and nothing was found. Pt speaks in full sentences without difficulty. Pt is [address], [place] [address] EMS Patient Care Report Name: GINA ORTEZ Room #: REG Dave#: [id number] Admission: 09/02/21 Attend Phys: Discharge: Date of : 64 Report #: [id number] GCS 15. EKG is unremarkable. Pt transported without incident. Care to RN, rm 5. Initial Vitals @22:29P: 90,BP: 177/98,SpO2: 99, @22:27P: 93,R: 16,BP: 166/98,Pain: 10/10,GCS: 15,Glucose: 109,CO: 2,SpO2: 98,Revised Trauma: 12, @22:28P: 95,CO: 1,SpO2: 98, @22:32P: 83,SpO2: 100, Assessments @22:25MENTAL:Event Oriented,Person Oriented,Time Oriented,Place Oriented,SKIN:HEENT:Head/Face: No Abnormalities,Eyes: No Abnormalities,Neck/Airway: No Abnormalities,LUNG SOUNDS:General: No Abnormalities,Left Upper: No Abnormalities,Right Upper: No Abnormalities,Left Lower: No Abnormalities,Right Lower: No Abnormalities,ABDOMEN:General: No Abnormalities,Left Upper: No Abnormalities,Right Upper: No Abnormalities,Left Lower: No Abnormalities,Right Lower: No Abnormalities,PELVIS//GI:Incontinence,EXTREMITIES:Left Arm: No Abnormalities,Right Arm: No Abnormalities,Left Leg: No Abnormalities,Right Leg: No Abnormalities,PULSE:NEURO:No Abnormalities, Impression Chest Pain / Discomfort Procedures @22:32 12-Lead ECG @22:25 ALS Assessment Response: UnchangedSucceeded @22:28 3-Lead ECG Response: UnchangedSucceeded Timeline 22:14,Call Received 22:14,Dispatch Notified 22:18,Dispatched 22:18,En Route 22:23,On Scene 22:25,At Patient 22:25,ALS Assessment,Response: UnchangedSucceeded, 22:27,BP: 166/98 M,PULSE: 93,RR: 16 R,SPO2: 98 Ox,ETCO2: ,B,PAIN: 10,GCS: 15, 22:28,3-Lead ECG,Response: UnchangedSucceeded, 22:28,BP: / M,PULSE: 95,RR: R,SPO2: 98 Ox,ETCO2: ,BG: ,PAIN: ,GCS: , 22:29,BP: 177/98 M,PULSE: 90,RR: R,SPO2: 99 Ox,ETCO2: ,BG: ,PAIN: ,GCS: , 22:31,Depart Scene 22:32,12-Lead ECG, 22:32,BP: / M,PULSE: 83,RR: R,SPO2: 100 Ox,ETCO2: ,BG: ,PAIN: ,GCS: , [facility] [address] [place] [address] EMS Patient Care Report Name: GINA ORTEZ Room #: REG MONICA Acosta#: [id number] Admission: 09/02/21 Attend Phys: Discharge: Date of : 64 Report #: [id number] 22:35,At Destination 22:44,Call Closed Disclaimer v1.1 Copyright 2020 [employer] This EMS Care Summary contains data elements from the applicable legal record (which may be displayed differently). It is designed to provide pertinent information for the following purposes: continuity of care, clinical quality, and state data reporting. The complete legal record is available to ED staff and administrators of the receiving hospital in [employer]'s Patient Tracker. All data is provided "as is."
[2021-09-02 23:09] LABS: ABSOLUTE NEUTROPHILS 2.6 thou/uL (1.4-8.2); BASOPHILS 1.3 % (0.0-2.0); HEMATOCRIT 34.4 % (42.0-52.0); HEMOGLOBIN 11.3 gm/dL (14.0-18.0); LYMPHOCYTES 34.3 % (24.0-44.0); MCH 32.9 pg (26.0-34.0); MCV 99.7 fL (80.0-100.0); MONOCYTES 8.6 % (1.0-8.0); PLATELET COUNT 193 thou/uL (150-400); POLYS 53.8 % (36.0-66.0); RBC 3.45 mil/uL (4.50-6.00); RDW 18.2 % (10.5-14.5); WBC 4.8 thou/uL (4.0-11.0)
[2021-09-02 23:12] LABS: CALCIUM 8.1 mg/dL (8.5-10.1); CREATININE 1.1 mg/dL (0.7-1.3); POTASSIUM 3.7 mmol/L (3.5-5.1)
[2021-09-02 23:22] LABS: ALBUMIN 3.8 g/dL (3.4-5.0); TOTAL BILIRUBIN 0.4 mg/dL (0.2-1.0); TOTAL PROTEIN 6.6 g/dL (6.4-8.2)
[2021-09-03 01:50] VITALS: BP 129/81
--- NOTE | 2021-09-03 07:10 | EKG ---
[address] [address] ELECTROCARDIOGRAM REPORT Name: SUSHILMONICAGINA Room #: DEP Dave#: [id number] Admission: 09/02/21 Attend Phys: Discharge: 09/03/21 Date of : 64 Report #: [id number] 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
== END 2021-09-03 01:50 | disposition home or self-care (01) ==
LOC: ER 22:37
PROVIDERS: Emergency Medicine
DX: F10.129 Alcohol abuse with intoxication, unspecified (principal); R07.89 Other chest pain; I10 Essential (primary) hypertension; G62.9 Polyneuropathy, unspecified; F41.9 Anxiety disorder, unspecified

== ENCOUNTER 2021-09-03 11:23 | Emergency (ER) | payer OTHER ==
[~2021-09-03] VITALS: Ht 182.9 cm; Wt 81.7 kg
[2021-09-03 12:00] LABS: ABSOLUTE NEUTROPHILS 5.3 thou/uL (1.4-8.2); BASOPHILS 0.8 % (0.0-2.0); EOSINOPHILS 0.6 % (0.0-3.0); HEMATOCRIT 32.9 % (42.0-52.0); HEMOGLOBIN 11.1 gm/dL (14.0-18.0); LYMPHOCYTES 17.7 % (24.0-44.0); MCH 33.3 pg (26.0-34.0); MCHC 33.6 g/dL (28.0-37.0); MCV 99.1 fL (80.0-100.0); MONOCYTES 7.6 % (1.0-8.0); PLATELET COUNT 194 thou/uL (150-400); POLYS 73.3 % (36.0-66.0); RBC 3.32 mil/uL (4.50-6.00); WBC 7.2 thou/uL (4.0-11.0)
[2021-09-03 12:08] LABS: CALCIUM 7.6 mg/dL (8.5-10.1); CREATININE 0.9 mg/dL (0.7-1.3); POTASSIUM 3.2 mmol/L (3.5-5.1)
[2021-09-03 12:14] LABS: ALBUMIN 3.6 g/dL (3.4-5.0); TOTAL BILIRUBIN 0.6 mg/dL (0.2-1.0); TOTAL PROTEIN 6.3 g/dL (6.4-8.2)
[2021-09-03 17:03] VITALS: BP 130/74
== END 2021-09-03 19:18 | disposition home or self-care (01) ==
LOC: ER 11:23
PROVIDERS: Emergency Medicine
DX: F10.129 Alcohol abuse with intoxication, unspecified (principal); G62.9 Polyneuropathy, unspecified; F41.9 Anxiety disorder, unspecified; I10 Essential (primary) hypertension; Z88.8 Allergy status to other drugs, medicaments and biological substances; Z79.899 Other long term (current) drug therapy; Y90.8 Blood alcohol level of 240 mg/100 ml or more

== ENCOUNTER 2021-09-03 20:35 | Emergency (ER) | payer OTHER ==
[~2021-09-03] VITALS: Ht 182.9 cm; Wt 81.7 kg
[2021-09-03 22:30] VITALS: BP 147/73
--- NOTE | 2021-09-04 10:15 | EKG ---
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
== END 2021-09-03 22:25 | disposition home or self-care (01) ==
LOC: ER 20:35
DX: F10.129 Alcohol abuse with intoxication, unspecified (principal); R07.89 Other chest pain; I10 Essential (primary) hypertension; G62.9 Polyneuropathy, unspecified; Z88.8 Allergy status to other drugs, medicaments and biological substances; Z79.899 Other long term (current) drug therapy; Y90.8 Blood alcohol level of 240 mg/100 ml or more

== ENCOUNTER 2021-09-10 15:49 | Emergency (ER) | payer OTHER ==
[~2021-09-10] VITALS: Ht 182.9 cm; Wt 81.7 kg
--- NOTE | ~2021-09-10 | EMS ---
[address] [address] EMS Patient Care Report Name: GINA ORTEZ Room #: REG MONICA Acosta#: [id number] Admission: 09/10/21 Attend Phys: Discharge: Date of : 64 Report #: [id number] THIS REPORT FOR: //name// Report Transmitted: 09/10/2021 16:09 EMS Care Summary [place], [place]/[facility] Incident [id number] @ 09/10/2021 15:24 Incident Location [address] [place] [address] Patient GINA ORTEZ Male, 61 Years 1960 Patient Address [address] [place] [address] Patient History Hypertension (HTN),Alcohol Abuse, Patient Allergies No known allergies, Patient Medications Lisinopril, Chief Complaint WEAKNESS/LIGHTHEADEDNESS Disposition Transported No Lights/[place] Dispatch Reason Chest Pain (Non-Traumatic) Transported To [facility] Narrative M537 ARRIVED ON SCENE TO FIND PT A 61YO MALE SITTING INSIDE STORE BY [employer] IN A CHAIR. PT STATES HE WALKED INTO THE STORE AND ASKED THEM TO CALL 911 SINCE HE WAS FEELING WEAK. UPON EMS ARRIVAL PT STATES THAT HE HAS BEEN FEELING LIGHTHEADED AND WEAK FOR THE PAST 4-5 DAYS AND WENT TO THE URGENT [address] [address] EMS Patient Care Report Name: GINA ORTEZ Room #: REG [facility] [id number] Admission: 09/10/21 Attend Phys: Discharge: Date of : 64 Report #: [id number] CARE YESTERDAY FOR THEM TO TELL HIM HE WAS FINE. PT STATES THAT IT GOT WORSE TODAY AND WOULD LIKE TO BE REASSESSED. PT WAS ASSISTED OUT TO AMBULANCE VIA OWN AMBULATION AND SAT ON BENCH SEAT. PT SECURED TO SEAT WITH [employer] AND VITALS ASSESSED ON SCENE. PT STATES HE HAS ALSO BEEN HAVING SOME MILD, NON RADIATING INTERMITTENT CHEST PAIN TODAY WELL THAT HE SAYS HAS HAPPENED BEFORE. UPON ARRIVAL TO ED PT WAS UNLOADED FROM AMBULANCE VIA OWN AMBULATION AND TAKEN TO TRIAGE. VERBAL REPORT GIVEN TO RN AND PT CARE TRANSFERRED. M537 RETURN IN SERVICE. Initial Vitals @15:33P: 97,BP: 159/96,SpO2: 96, @15:36P: 101,R: 16,BP: 146/87,Pain: 2/10,GCS: 15,Glucose: 128,SpO2: 96,Revised Trauma: 12, Assessments @15:32MENTAL:Event Oriented,Time Oriented,Person Oriented,Place Oriented,SKIN:HEENT:LUNG SOUNDS:ABDOMEN:PELVIS//GI:EXTREMITIES:PULSE:NEURO: Impression Generalized Weakness Procedures @15:32 ALS Assessment Response: UnchangedSucceeded Timeline 15:22,Call Received 15:22,Dispatch Notified 15:24,Dispatched 15:25,En Route 15:30,On Scene 15:31,At Patient 15:32,ALS Assessment,Response: UnchangedSucceeded, 15:33,BP: 159/96 M,PULSE: 97,RR: R,SPO2: 96 Ox,ETCO2: ,BG: ,PAIN: ,GCS: , 15:36,BP: 146/87 M,PULSE: 101,RR: 16 R,SPO2: 96 Ox,ETCO2: ,B,PAIN: 2,GCS: 15, 15:37,Depart Scene 15:45,At Destination 16:05,Call Closed Disclaimer v1.1 Copyright 2020 [employer] This EMS Care Summary contains data elements from the applicable legal record (which may be displayed differently). It is designed to provide pertinent information for the following purposes: continuity of care, clinical quality, [facility] [address] [place] [address] EMS Patient Care Report Name: GINA ORTEZ Room #: REG [facility] [id number] Admission: 09/10/21 Attend Phys: Discharge: Date of : 64 Report #: [id number] and state data reporting. The complete legal record is available to ED staff and administrators of the receiving hospital in [employer]'s Patient Tracker. All data is provided "as is."
[2021-09-10 15:50] VITALS: BP 126/76
--- NOTE | 2021-09-11 08:03 | EKG ---
[address] [place] [address] ELECTROCARDIOGRAM REPORT Name: GINA ORTEZ Room #: DEP Dave#: [id number] Admission: 09/10/21 Attend Phys: Discharge: 09/10/21 Date of : 64 Report #: [id number] [facility] ED Test Date: 2021-09-10 Test Time: 16:04:22 Pat Name: GINA ORTEZ Department: Room: Gender: Functional Support Analyst: SANTA : 1960 Requested By: Peggy Mckenna Order Number: [id number] MD: Reinaldo Burgess Measurements Intervals [place] Rate: 85 P: 26 [place]: 149 QRS: 72 QRSD: 91 T: 23 QT: 385 QTc: 458 Interpretive Statements Sinus rhythm Abnormal inferior Q waves Compared to ECG 09/03/2021 20:37:44 Inferior Q waves now present Q waves now present Electronically Signed On 09-11-2021 8:03:29 COUPON AND BOND COLLECTION CLERK by Reinaldo Burgess [email or web address] <ELECTRONICALLY SIGNED> By: Reinaldo Burgess MD, [facility] 09/11/21 0803 1604 1604 Reinaldo Burgess MD, FACC /EPI
== END 2021-09-10 17:45 | disposition home or self-care (01) ==
LOC: ER 15:49
DX: F10.129 Alcohol abuse with intoxication, unspecified (principal); R07.89 Other chest pain; I10 Essential (primary) hypertension; F41.9 Anxiety disorder, unspecified; G62.9 Polyneuropathy, unspecified; Z88.8 Allergy status to other drugs, medicaments and biological substances

== ENCOUNTER 2021-09-15 22:52 | Emergency (ER) | payer OTHER ==
[~2021-09-15] VITALS: Ht 182.9 cm; Wt 81.7 kg
[2021-09-15 23:29] LABS: BASOPHILS 0.9 % (0.0-2.0); EOSINOPHILS 2.1 % (0.0-3.0); HEMATOCRIT 37.4 % (42.0-52.0); HEMOGLOBIN 12.4 gm/dL (14.0-18.0); LYMPHOCYTES 25.2 % (24.0-44.0); MCH 32.8 pg (26.0-34.0); MCV 99.3 fL (80.0-100.0); MONOCYTES 12.3 % (1.0-8.0); PLATELET COUNT 280 thou/uL (150-400); POLYS 59.5 % (36.0-66.0); RBC 3.77 mil/uL (4.50-6.00); RDW 18.3 % (10.5-14.5); WBC 6.7 thou/uL (4.0-11.0)
[2021-09-15 23:48] LABS: CALCIUM 7.8 mg/dL (8.5-10.1); CREATININE 0.9 mg/dL (0.7-1.3); POTASSIUM 3.4 mmol/L (3.5-5.1)
[2021-09-15 23:54] LABS: TOTAL BILIRUBIN 0.2 mg/dL (0.2-1.0); TOTAL PROTEIN 7.1 g/dL (6.4-8.2)
[2021-09-16 03:46] VITALS: BP 130/65
[2021-09-17] MEDS ORDERED: PEPCID40 MG PO (07:10)
== END 2021-09-16 08:50 | disposition home or self-care (01) ==
LOC: ER 22:52
PROVIDERS: Emergency Medicine
DX: F10.129 Alcohol abuse with intoxication, unspecified (principal); G62.9 Polyneuropathy, unspecified; F41.9 Anxiety disorder, unspecified; I10 Essential (primary) hypertension; Z88.8 Allergy status to other drugs, medicaments and biological substances; Y90.9 Presence of alcohol in blood, level not specified

== ENCOUNTER 2021-09-17 06:50 | Emergency (ER) | payer OTHER ==
[~2021-09-17] VITALS: Ht 182.9 cm; Wt 81.7 kg
--- NOTE | ~2021-09-17 | EMS ---
[address] [address] EMS Patient Care Report Name: GINA ORTEZ Room #: DEP MONICA Acosta#: [id number] Admission: 09/17/21 Attend Phys: Discharge: 09/17/21 Date of : 64 Report #: [id number] THIS REPORT FOR: //name// Report Transmitted: 09/17/2021 06:24 EMS Care Summary [place], [place] Incident [id number] @ 09/17/2021 06:24 Incident Location [address] [place] [address] Patient GINA ORTEZ Male, 61 Years 1960 Patient Address [address] [place] [address] Patient History Hypertension (HTN),Anxiety,Alcohol Abuse, Patient Allergies No known allergies, Patient Medications Lisinopril, Chief Complaint cold exposure Disposition Transported No Lights/[place] Dispatch Reason Unknown Problem/Person Down Transported To [facility] Narrative pt found ambulatory at [facility]. he had asked them to call 911 for him. pt is dressed in a coat and paper scrubs, in 28 degree weather. he states he was at a friend's house and the friend dropped him off on his way to work. he c/o having chronic chest wall pain that he would like to get checked out at [facility]. [address] [address] EMS Patient Care Report Name: GINA ORTEZ Room #: DEP [facility]..#: [id number] Admission: 09/17/21 Attend Phys: Discharge: 09/17/21 Date of : 64 Report #: [id number] he states he had been seen for this pain multiple times and is told it is not his heart. he was last seen at the ER on 09/15 for same. his pants are soiled w/ dried feces. pt seats self on bench, transport w/o change. Initial Vitals @06:40P: 100,R: 18,BP: 180/100,Pain: 4/10,GCS: 15,SpO2: 98,Revised Trauma: 12, Assessments @06:38MENTAL:Event Oriented,Place Oriented,Person Oriented,Time Oriented,SKIN:Cold,HEENT:Head/Face: No Abnormalities,LUNG SOUNDS:ABDOMEN:PELVIS//GI:Pelvis GUOther,EXTREMITIES:PULSE:Radial: 2+ Normal,NEURO:No Abnormalities, Impression Behavioral/psychiatric episode Procedures @06:38 ALS Assessment Timeline 06:23,Call Received 06:23,Dispatch Notified 06:24,Dispatched 06:26,En Route 06:36,On Scene 06:37,At Patient 06:38,ALS Assessment, 06:40,BP: 180/100 M,PULSE: 100,RR: 18 R,SPO2: 98 Ox,ETCO2: ,BG: ,PAIN: 4,GCS: 15, 06:43,Depart Scene 06:47,At Destination 07:01,Call Closed Disclaimer v1.1 Copyright 2020 [employer] This EMS Care Summary contains data elements from the applicable legal record (which may be displayed differently). It is designed to provide pertinent information for the following purposes: continuity of care, clinical quality, and state data reporting. The complete legal record is available to ED staff and administrators of the receiving hospital in [employer]'s Patient Tracker. All data is provided "as is."
[2021-09-17] MEDS ORDERED: PEPCID40 MG PO (07:10)
[2021-09-17 07:22] VITALS: BP 137/83
--- NOTE | 2021-09-17 08:54 | EKG ---
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: marley : 1960 Requested By: Leodan Farmer Order Number: [id number] MD: Niranjan Spaulding Measurements Intervals [place] Rate: 81 P: 56 [place]: 136 QRS: 73 QRSD: 93 T: 22 QT: 399 QTc: 464 Interpretive Statements Sinus rhythm Poor R wave progression Compared to ECG 09/10/2021 16:04:22 No significant change was found Electronically Signed On 09-17-2021 8:54:42 REFRACTORY FURNACE DESIGNER by Niranjan Spaulding [email or web address] <ELECTRONICALLY SIGNED> By: Niranjan Spaulding MD, [facility] 09/17/21 0854 07 07 Niranjan Spaulding MD, FACC /EPI
== END 2021-09-17 07:36 | disposition home or self-care (01) ==
LOC: ER 06:50
DX: R07.89 Other chest pain (principal); G62.9 Polyneuropathy, unspecified; F41.9 Anxiety disorder, unspecified; I10 Essential (primary) hypertension; Z88.8 Allergy status to other drugs, medicaments and biological substances

== ENCOUNTER 2021-10-09 17:53 | Emergency (ER) | payer OTHER ==
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
[~2021-10-09 17:53] MED LIST changes: +PEPCID40 MG PO
[2021-10-09 19:00] VITALS: BP 154/84
[2021-10-09 19:30] LABS: ABSOLUTE NEUTROPHILS 5.2 thou/uL (1.4-8.2); BASOPHILS 1.1 % (0.0-2.0); EOSINOPHILS 1.5 % (0.0-3.0); HEMATOCRIT 33.6 % (42.0-52.0); HEMOGLOBIN 11.3 gm/dL (14.0-18.0); LYMPHOCYTES 19.8 % (24.0-44.0); MCH 32.7 pg (26.0-34.0); MCHC 33.7 g/dL (28.0-37.0); MCV 97.1 fL (80.0-100.0); PLATELET COUNT 432 thou/uL (150-400); POLYS 68.6 % (36.0-66.0); RBC 3.46 mil/uL (4.50-6.00); RDW 18.1 % (10.5-14.5); WBC 7.5 thou/uL (4.0-11.0)
[2021-10-09 19:35] LABS: CALCIUM 8.8 mg/dL (8.5-10.1); POTASSIUM 3.9 mmol/L (3.5-5.1)
[2021-10-09 19:39] LABS: ALBUMIN 4.1 g/dL (3.4-5.0); MAGNESIUM 1.9 mg/dL (1.8-2.4); PHOSPHORUS 3.7 mg/dL (2.6-4.7); TOTAL BILIRUBIN 1.2 mg/dL (0.2-1.0); TOTAL PROTEIN 6.9 g/dL (6.4-8.2)
== END 2021-10-09 23:00 | disposition home or self-care (01) ==
LOC: ER 17:53
PROVIDERS: Emergency Medicine
DX: M79.605 Pain in left leg (principal); R20.0 Anesthesia of skin; R20.2 Paresthesia of skin; G62.9 Polyneuropathy, unspecified; F41.9 Anxiety disorder, unspecified; I10 Essential (primary) hypertension; Z79.899 Other long term (current) drug therapy; Z88.8 Allergy status to other drugs, medicaments and biological substances

== ENCOUNTER → 2021-10-10 | Emergency (ER) | payer OTHER ==
[2021-10-10 02:05] VITALS: BP 142/68
== END ==
LOC: ER 02:03
DX: R20.0 Anesthesia of skin (principal); G62.9 Polyneuropathy, unspecified; F41.9 Anxiety disorder, unspecified; I10 Essential (primary) hypertension; Z79.899 Other long term (current) drug therapy; Z88.8 Allergy status to other drugs, medicaments and biological substances

== ENCOUNTER 2021-11-01 22:48 | Emergency (ER) | payer OTHER ==
[~2021-11-01] VITALS: Ht 182.9 cm; Wt 81.7 kg
[2021-11-01 23:00] VITALS: BP 93/49
== END 2021-11-02 05:20 | disposition home or self-care (01) ==
LOC: ER 22:48
DX: F10.129 Alcohol abuse with intoxication, unspecified (principal); G62.9 Polyneuropathy, unspecified; F41.9 Anxiety disorder, unspecified; I10 Essential (primary) hypertension; Z88.8 Allergy status to other drugs, medicaments and biological substances

== ENCOUNTER 2021-11-02 15:50 | Emergency (ER) | payer OTHER ==
[~2021-11-02] VITALS: Ht 182.9 cm; Wt 81.7 kg
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
[2021-11-02 16:24] LABS: HEMATOCRIT 34.6 % (42.0-52.0); HEMOGLOBIN 11.4 gm/dL (14.0-18.0); MCH 31.9 pg (26.0-34.0); MCV 96.7 fL (80.0-100.0); RBC 3.58 mil/uL (4.50-6.00); RDW 18.3 % (10.5-14.5); WBC 2.9 thou/uL (4.0-11.0)
[2021-11-02 16:33] LABS: CALCIUM 7.5 mg/dL (8.5-10.1); CREATININE 1.4 mg/dL (0.7-1.3); POTASSIUM 4.3 mmol/L (3.5-5.1)
[2021-11-02 16:43] LABS: ALBUMIN 3.6 g/dL (3.4-5.0); TOTAL BILIRUBIN 0.2 mg/dL (0.2-1.0); TOTAL PROTEIN 6.2 g/dL (6.4-8.2)
[2021-11-02 17:45] VITALS: BP 112/70
--- NOTE | 2021-11-03 07:24 | EKG ---
[place] [address] [facility] [place] [address] ELECTROCARDIOGRAM REPORT Name: GINA ORTEZ Room #: DEP MONICA Acosta#: [id number] Admission: 11/02/21 Attend Phys: Discharge: 11/02/21 Date of : 64 Report #: [id number] [facility] ED Test Date: 2021-11-02 Test Time: 16:15:18 Pat Name: GINA ORTEZ Department: Room: Gender: Health Education Aide: DANYELLE : 1960 Requested By: Andrey Salomon Order Number: [id number] MD: Reinaldo Burgess Measurements Intervals Alba Rate: 71 P: 33 OR: 137 QRS: 72 QRSD: 95 T: 29 QT: 440 QTc: 479 Interpretive Statements Sinus rhythm Compared to ECG 09/17/2021 07:03:42 Poor R-wave progression no longer present Electronically Signed On 11-03-2021 7:24:15 [employer]GE[employer] by Reinaldo Burgess [email or web address] <ELECTRONICALLY SIGNED> By: Reinaldo Burgess MD, [facility] 11/03/21 0724 1615 1615 Reinaldo Burgess MD, FACC /EPI
== END 2021-11-02 22:59 | disposition home or self-care (01) ==
LOC: ER 15:50
PROVIDERS: Physician Assistant
DX: F10.129 Alcohol abuse with intoxication, unspecified (principal); Y90.9 Presence of alcohol in blood, level not specified; F41.9 Anxiety disorder, unspecified; I10 Essential (primary) hypertension; Z88.8 Allergy status to other drugs, medicaments and biological substances

== ENCOUNTER 2021-11-10 21:26 | Emergency (ER) | payer OTHER ==
[~2021-11-10] VITALS: Ht 182.9 cm; Wt 81.7 kg
[2021-11-10 21:50] VITALS: BP 104/63
== END 2021-11-11 05:30 | disposition home or self-care (01) ==
LOC: ER 21:26
DX: F10.129 Alcohol abuse with intoxication, unspecified (principal); Y90.9 Presence of alcohol in blood, level not specified; F41.9 Anxiety disorder, unspecified; I10 Essential (primary) hypertension; Z88.8 Allergy status to other drugs, medicaments and biological substances

== ENCOUNTER 2021-11-11 16:06 | Emergency (ER) | payer OTHER ==
[~2021-11-11] VITALS: Ht 175.3 cm; Wt 74.8 kg
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
[2021-11-11 16:14] VITALS: BP 89/52
[2021-11-11 17:40] LABS: ABSOLUTE NEUTROPHILS 1.9 thou/uL (1.4-8.2); BASOPHILS 0.5 % (0.0-2.0); EOSINOPHILS 5.4 % (0.0-3.0); HEMATOCRIT 39.5 % (42.0-52.0); HEMOGLOBIN 12.9 gm/dL (14.0-18.0); LYMPHOCYTES 43.2 % (24.0-44.0); MCHC 32.7 g/dL (28.0-37.0); MCV 94.9 fL (80.0-100.0); MONOCYTES 11.2 % (1.0-8.0); PLATELET COUNT 295 thou/uL (150-400); POLYS 39.7 % (36.0-66.0); RBC 4.17 mil/uL (4.50-6.00); RDW 18.7 % (10.5-14.5); WBC 4.8 thou/uL (4.0-11.0)
[2021-11-11 18:02] LABS: CALCIUM 8.4 mg/dL (8.5-10.1); CREATININE 1.4 mg/dL (0.7-1.3); POTASSIUM 4.7 mmol/L (3.5-5.1)
[2021-11-11 18:09] LABS: ALBUMIN 4.2 g/dL (3.4-5.0); TOTAL BILIRUBIN 0.1 mg/dL (0.2-1.0); TOTAL PROTEIN 7.1 g/dL (6.4-8.2)
== END 2021-11-11 19:24 | disposition home or self-care (01) ==
LOC: ER 16:06
PROVIDERS: Nurse Practitioner
DX: F10.129 Alcohol abuse with intoxication, unspecified (principal); Y90.9 Presence of alcohol in blood, level not specified; F41.9 Anxiety disorder, unspecified; I10 Essential (primary) hypertension; Z88.8 Allergy status to other drugs, medicaments and biological substances

== ENCOUNTER 2021-11-11 22:27 | Emergency (ER) | payer OTHER ==
[~2021-11-11] VITALS: Ht 172.7 cm; Wt 72.6 kg
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
[2021-11-12 04:45] VITALS: BP 115/74
== END 2021-11-12 04:46 | disposition home or self-care (01) ==
LOC: ER 22:27
DX: F10.129 Alcohol abuse with intoxication, unspecified (principal); G62.9 Polyneuropathy, unspecified; F41.9 Anxiety disorder, unspecified; I10 Essential (primary) hypertension; Z88.8 Allergy status to other drugs, medicaments and biological substances

== ENCOUNTER 2021-11-12 17:58 | Emergency (ER) | payer OTHER ==
[~2021-11-12] VITALS: Ht 182.9 cm; Wt 81.7 kg
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
[2021-11-12 19:37] VITALS: BP 145/88
== END 2021-11-12 19:30 | disposition home or self-care (01) ==
LOC: ER 17:58
DX: F10.129 Alcohol abuse with intoxication, unspecified (principal); I10 Essential (primary) hypertension; G62.9 Polyneuropathy, unspecified; F41.9 Anxiety disorder, unspecified; Z88.8 Allergy status to other drugs, medicaments and biological substances